=== PATIENT | female | born 1950 | race Caucasian/White ===

== ENCOUNTER → 2018-05-23 11:15 | Outpatient (CLI) | payer OTHER, SELFPAY ==
[2018-05-23 11:50] LABS: Add Manual Diff / Slide Review NO; Eosinophils Percent Auto 3.4 % (2-4); Hematocrit 41.8 % (36-46); Lymphocytes Percent Auto 46.1 % (25-40); Mean Corpuscular HGB Conc 33.4 % (30-36); Mean Corpuscular Hemoglobin 29.5 PG (26-34); Mean Corpuscular Volume 88.4 fL (80-100); Monocytes Percent Auto 9.7 % (3-14); Neutrophils Absolute Auto 3200 /uL (3000-5900); Neutrophils Percent Auto 39.8 % (50-75); Platelet Count 274 X10^3/uL (150-400); Red Blood Cell Count 4.73 X10^6/uL (4.0-5.2); White Blood Cell Count 8.1 X10^3/uL (4.5-11.0)
[2018-05-23 12:19] LABS: Alanine Aminotransferase 28 IU/L (9-52); Albumin 4.1 g/dL (3.5-5.0); Albumin Globulin Ratio 1.3 (1.0-2.8); Alkaline Phosphatase 71 U/L (38-126); Aspartate Aminotransferase 20 IU/L (14-36); BUN Creatinine Ratio 25.7 (6-22); Bilirubin Total 0.4 mg/dL (0.2-1.3); Blood Urea Nitrogen 18 mg/dL (7-17); Calcium 10.1 mg/dL (8.4-10.2); Carbon Dioxide 31 mmol/L (22-32); Chloride 101 mmol/L (98-107); Estimated Glomerular Filt Rate > 60.0 mL/min (>60); Globulin 3.1 g/dL (1.7-4.1); Glucose 155 mg/dL (80-110); HEMOLYSIS < 15 (0-50); Potassium 4.2 mmol/L (3.4-5.1); Sodium 143 mmol/L (137-145); Total Protein 7.2 g/dL (6.3-8.2)
[2018-05-26 10:41] LABS: QuantiFERON TB NEGATIVE (Negative)
== END ==
PROVIDERS: PCP Family Medicine; Visit Provider Physician Assistant
DX: L40.0 Psoriasis vulgaris (principal); L29.8 Other pruritus; Z71.89 Other specified counseling; Z79.899 Other long term (current) drug therapy
CPT/HCPCS: 36415; 80053; 85025; 86480

== ENCOUNTER → 2018-09-13 08:14 | Outpatient (CLI) | payer OTHER, SELFPAY ==
[2018-09-13 08:21] LABS: Bacteria Urine None Seen; RBC Urine None Seen (0-5/HPF)
[2018-09-13 08:48] LABS: Hematocrit 41.7 % (36-46); Hemoglobin 14.2 g/dL (12.0-16.0)
[2018-09-13 09:00] LABS: Appearance Urine UA CLEAR; Bilirubin Urine UA NEGATIVE (NEGATIVE); Color Urine UA YELLOW; Glucose Urine UA NEGATIVE (Normal); Ketones Urine UA NEGATIVE (NEGATIVE); Leukocyte Esterase Urine UA TRACE (NEGATIVE); Nitrite Urine UA NEGATIVE (Negative); Occult Blood Urine UA NEGATIVE (Negative); Protein Urine UA NEGATIVE (Negative); Specific Gravity Urine UA >=1.030 (1.000-1.035); Urobilinogen Urine UA 0.2 E.U./dL (0.2)
[2018-09-13 09:04] LABS: Culture Indicated Urine Cult Not Indicated; Squamous Epithelial Cell Urine 10-30 /HPF; WBC Urine 0-1/HPF (0-5/HPF)
[2018-09-13 09:27] LABS: Creatinine Urine Random 183.8 mg/dL; Protein (Total) Urine Random < 5 mg/dL (0-12); Protein Creatinine Ratio Urine 0.02 GRAM/24H
[2018-09-13 09:33] LABS: BUN Creatinine Ratio 28.6 (6-22); Blood Urea Nitrogen 20 mg/dL (7-17); Calcium 9.7 mg/dL (8.4-10.2); Carbon Dioxide 29 mmol/L (22-32); Chloride 101 mmol/L (98-107); Estimated Glomerular Filt Rate > 60.0 mL/min (>60); Glucose 135 mg/dL (80-110); HEMOLYSIS 20 (0-50); Potassium 4.5 mmol/L (3.4-5.1); Sodium 142 mmol/L (137-145)
== END ==
PROVIDERS: Family Provider Family Medicine; PCP Family Medicine; Visit Provider Student in an Organized Health Care Education/Training Program
DX: N05.9 Unspecified nephritic syndrome with unspecified morphologic changes (principal); D64.9 Anemia, unspecified; N30.00 Acute cystitis without hematuria; R80.9 Proteinuria, unspecified
CPT/HCPCS: 80048; 81001; 82570; 84156; 85014; 85018

== ENCOUNTER → 2018-11-09 08:49 | Outpatient (CLI) | payer OTHER, SELFPAY ==
--- NOTE | 2018-11-09 | DI.MG.S_ITS ---
BILATERAL DIGITAL SCREENING MAMMOGRAM 3D/2D WITH CAD: 11/09/2018 CLINICAL: Routine screening. Comparison is made to exams dated: 10/26/2017 mammogram, 10/01/2016 mammogram, and 09/30/2015 mammogram - [facility]. There are scattered fibroglandular elements in both breasts. Current study was also evaluated with a Computer Aided Detection (CAD) system. No significant masses, calcifications, or other findings are seen in either breast. There has been no significant interval change. IMPRESSION: NEGATIVE There is no mammographic evidence of malignancy. A 1 year screening mammogram is recommended. This exam was interpreted at Station ID: [id number]. NOTE: For mammograms, a report in lay terms will be sent to the patient. Approximately 15% of breast malignancies will not be visualized mammographically. In the management of a palpable breast mass, a negative mammogram must not discourage biopsy of a clinically suspicious lesion. Electronically Signed By: Jimi merlos/fredrick:11/09/2018 10:59:49 letter sent: Normal Exam ACR BI-RADS Category 1: Negative 3341F
== END ==
PROVIDERS: Family Provider Family Medicine; PCP Family Medicine; Visit Provider Family Medicine
DX: Z12.31 Encounter for screening mammogram for malignant neoplasm of breast (principal)
CPT/HCPCS: 77063; 77067

== ENCOUNTER → 2019-03-08 11:42 | Outpatient (CLI) | payer OTHER, SELFPAY ==
[2019-03-08 12:17] LABS: Add Manual Diff / Slide Review NO; Basophils Absolute Auto 100 /uL (0-100); Basophils Percent Auto 0.8 % (0-2); Eosinophils Absolute Auto 400 /uL (0-450); Eosinophils Percent Auto 3.1 % (2-4); Hematocrit 42.9 % (36-46); Hemoglobin 14.2 g/dL (12.0-16.0); Lymphocytes Absolute Auto 2800 /uL (1100-4500); Lymphocytes Percent Auto 22.7 % (25-40); Mean Corpuscular HGB Conc 33.1 % (30-36); Mean Corpuscular Volume 90.6 fL (80-100); Monocytes Absolute Auto 1300 /uL (0-900); Neutrophils Absolute Auto 7600 /uL (1500-7000); Neutrophils Percent Auto 62.4 % (50-75); Platelet Count 299 X10^3/uL (150-400); Red Blood Cell Count 4.74 X10^6/uL (4.0-5.2); White Blood Cell Count 12.2 X10^3/uL (4.5-11.0)
[2019-03-08 12:57] LABS: Alanine Aminotransferase 28 IU/L (9-52); Albumin 4.5 g/dL (3.5-5.0); Albumin Globulin Ratio 1.3 (1.0-2.8); Alkaline Phosphatase 76 U/L (38-126); Aspartate Aminotransferase 17 IU/L (14-36); BUN Creatinine Ratio 37.1 (6-22); Bilirubin Total 0.4 mg/dL (0.2-1.3); Blood Urea Nitrogen 26 mg/dL (7-17); Calcium 10.6 mg/dL (8.4-10.2); Carbon Dioxide 28 mmol/L (22-32); Chloride 101 mmol/L (98-107); Estimated Glomerular Filt Rate > 60.0 mL/min (>60); Globulin 3.4 g/dL (1.7-4.1); Glucose 88 mg/dL (80-110); HEMOLYSIS < 15 (0-50); Potassium 4.4 mmol/L (3.4-5.1); Sodium 139 mmol/L (137-145); Total Protein 7.9 g/dL (6.3-8.2)
[2019-03-08 15:26] LABS: Hepatitis B Surface Antigen NEGATIVE s/c (NEGATIVE)
[2019-03-08 15:37] LABS: HIV 1 and 2 Antibody NEGATIVE (NEGATIVE)
[2019-03-08 16:31] LABS: Hep C Virus Ab w/Reflex Quant NEGATIVE s/c (NEGATIVE)
[2019-03-11 10:18] LABS: Mitogen-NIL 7.77 IU/mL; NIL 0.01 IU/mL; QuantiFERON TB NEGATIVE (Negative); TB1-NIL < 0.01 IU/mL; TB2-NIL < 0.01 IU/mL
== END ==
PROVIDERS: PCP Family Medicine; Visit Provider Physician Assistant
DX: L40.0 Psoriasis vulgaris (principal)
CPT/HCPCS: 36415; 80053; 85025; 86480; 86703; 86803; 87340

== ENCOUNTER → 2019-05-29 10:05 | Outpatient (CLI) | payer OTHER, SELFPAY ==
[2019-05-29 10:54] LABS: Add Manual Diff / Slide Review NO; Basophils Absolute Auto 100 /uL (0-100); Basophils Percent Auto 1.1 % (0-2); Eosinophils Absolute Auto 300 /uL (0-450); Eosinophils Percent Auto 3.7 % (2-4); Hematocrit 41.6 % (36-46); Lymphocytes Absolute Auto 3000 /uL (1100-4500); Lymphocytes Percent Auto 42.7 % (25-40); Mean Corpuscular HGB Conc 33.6 % (30-36); Mean Corpuscular Hemoglobin 30.7 PG (26-34); Mean Corpuscular Volume 91.6 fL (80-100); Monocytes Absolute Auto 800 /uL (0-900); Monocytes Percent Auto 10.9 % (3-14); Neutrophils Absolute Auto 2900 /uL (1500-7000); Neutrophils Percent Auto 41.6 % (50-75); Platelet Count 279 X10^3/uL (150-400); Red Blood Cell Count 4.54 X10^6/uL (4.0-5.2); Red Cell Distribution Width 12.9 % (11.6-14.8)
[2019-05-29 11:01] LABS: Alanine Aminotransferase 22 IU/L (9-52); Albumin 4.3 g/dL (3.5-5.0); Albumin Globulin Ratio 1.4 (1.0-2.8); Alkaline Phosphatase 73 U/L (38-126); Aspartate Aminotransferase 19 IU/L (14-36); BUN Creatinine Ratio 25.7 (6-22); Bilirubin Total 0.7 mg/dL (0.2-1.3); Blood Urea Nitrogen 18 mg/dL (7-17); Calcium 10.1 mg/dL (8.4-10.2); Carbon Dioxide 28 mmol/L (22-32); Chloride 102 mmol/L (98-107); Estimated Glomerular Filt Rate > 60.0 mL/min (>60); Globulin 3.1 g/dL (1.7-4.1); Glucose 114 mg/dL (80-110); HEMOLYSIS < 15 (0-50); Potassium 4.4 mmol/L (3.4-5.1); Sodium 140 mmol/L (137-145); Total Protein 7.4 g/dL (6.3-8.2)
[2019-05-29 12:17] LABS: HIV 1 and 2 Antibody NEGATIVE (NEGATIVE); Hep C Virus Ab w/Reflex Quant NEGATIVE s/c (NEGATIVE)
[2019-06-01 13:47] LABS: Mitogen-NIL > 10.00 IU/mL; NIL 0.02 IU/mL; QuantiFERON TB NEGATIVE (Negative); TB1-NIL < 0.01 IU/mL; TB2-NIL < 0.01 IU/mL
[2019-06-05 07:55] LABS: Hepatitis B Surf Ab Qualitativ Nonreactive (Nonreactive)
== END ==
PROVIDERS: PCP Family Medicine; Visit Provider Physician Assistant
DX: L40.0 Psoriasis vulgaris (principal)
CPT/HCPCS: 36415; 80053; 85025; 86480; 86703; 86706; 86803

== ENCOUNTER → 2019-06-19 12:37 | Outpatient (CLI) | payer OTHER, SELFPAY ==
--- NOTE | 2019-06-19 | DI.RAD.S_ITS ---
PROCEDURE: XR HIP W PEL IF DONE LT 2V INDICATIONS: LEFT HIP PAIN TECHNIQUE: AP pelvis with lateral view(s) of the left hip(s). COMPARISON: None. FINDINGS: Bones: No fractures or dislocations. Pelvic ring appears intact. No suspicious bony lesions. Soft tissues: The visualized bowel gas pattern is normal. No suspicious soft tissue calcifications. IMPRESSION: Only a slight degree of hip joint osteoarthritis is present, symmetric. Surgical clips at the right lower quadrant suggest prior appendectomy. Dictated by: Geovanni Medley M.D. on 06/19/2019 at 15:17 Approved by: Geovanni Medley M.D. on 06/19/2019 at 15:17
== END ==
PROVIDERS: PCP Family Medicine; Visit Provider Family Medicine
DX: M25.552 Pain in left hip (principal); Z78.0 Asymptomatic menopausal state
CPT/HCPCS: 73502; 77080

== ENCOUNTER → 2020-03-03 09:24 | Outpatient (CLI) | payer OTHER, SELFPAY ==
--- NOTE | 2020-03-03 | DI.RAD.S_ITS ---
PROCEDURE: XR SHOULDER RT MIN 2V INDICATIONS: RIGHT SHOULDER PAIN TECHNIQUE: 3 views of the shoulder were acquired. COMPARISON: None. FINDINGS: Bones: No fractures or dislocations. There is widening of the acromioclavicular joint without distal clavicle elevation. No suspicious bony lesions. Visualized ribs appear intact. Soft tissues: Small wispy calcifications are seen at the rotator cuff insertion sites adjacent to the lateral humeral head.. IMPRESSION: 1. Findings of probable calcific tendinitis or enthesopathy at the rotator cuff insertion. 2. There is a.c. joint separation, chronicity is uncertain. Correlate with point tenderness. Dictated by: Daya Pagan M.D. on 03/03/2020 at 10:43 Approved by: Daya Pagan M.D. on 03/03/2020 at 10:49
== END ==
PROVIDERS: PCP Family Medicine; Referring Provider Family Medicine; Visit Provider Family Medicine
DX: M25.511 Pain in right shoulder (principal); S43.101A Unspecified dislocation of right acromioclavicular joint, initial encounter
CPT/HCPCS: 73030

== ENCOUNTER → 2020-03-14 10:04 | Outpatient (CLI) | payer OTHER, SELFPAY ==
--- NOTE | 2020-03-14 | DI.MG.S_ITS ---
BILATERAL DIGITAL SCREENING MAMMOGRAM 3D/2D WITH CAD: 03/14/2020 CLINICAL: Routine screening. Comparison is made to exams dated: 11/09/2018 mammogram - [facility], 10/26/2017 mammogram, 10/01/2016 mammogram, 09/30/2015 mammogram, and 09/18/2014 mammogram - [facility]. There are scattered fibroglandular elements in both breasts. Current study was also evaluated with a Computer Aided Detection (CAD) system. No significant masses, calcifications, or other findings are seen in either breast. There has been no significant interval change. IMPRESSION: NEGATIVE There is no mammographic evidence of malignancy. A 1 year screening mammogram is recommended. This exam was interpreted at Station ID: [id number]. NOTE: For mammograms, a report in lay terms will be sent to the patient. Approximately 15% of breast malignancies will not be visualized mammographically. In the management of a palpable breast mass, a negative mammogram must not discourage biopsy of a clinically suspicious lesion. Electronically Signed By: Sree joaquin/fredrick:03/14/2020 12:08:53 letter sent: Normal Exam ACR BI-RADS Category 1: Negative 3341F
== END ==
PROVIDERS: PCP Family Medicine; Referring Provider Family Medicine; Visit Provider Family Medicine
DX: Z12.31 Encounter for screening mammogram for malignant neoplasm of breast (principal)
CPT/HCPCS: 77063; 77067

== ENCOUNTER → 2020-05-20 11:47 | Outpatient (CLI) | payer OTHER, SELFPAY ==
[2020-05-21 09:37] LABS: COVID19 Sendout Not Detected (Not Detect)
== END ==
PROVIDERS: PCP Family Medicine; Visit Provider Physician Assistant
DX: Z11.59 Encounter for screening for other viral diseases (principal)
CPT/HCPCS: 87635

== ENCOUNTER 2020-05-23 14:12 | Day surgery (SDC) | payer OTHER, SELFPAY ==
--- NOTE | 2020-05-23 | PATH_ITS ---
[facility] Accession Number: [id number] . 01 Material submitted: . colon - POLYP TRANSVERSE 2 MM . 01 Clinical history: . SDC . 02 Diagnosis: Transverse Colon, Polyp 2 mm, Biopsy: Tubular adenoma. MRV 05/26/2020 0928 Local . 02 Electronically signed: . Jamia Woodall MD, Pathologist NPI- [id number] . 01 Gross description: . POLYP TRANSVERSE 2 MM: Received in formalin is 1 fragment(s) of levy, soft tissue measuring 0.4 x 0.3 x 0.1 cm submitted entirely in 1 cassette(s) /QBJ 05/24/2020 0752 Local . 02 Pathologist provided ICD-10: D12.3 . 02 CPT . 135767 Performed at: 01 [facility] [address] [id number] MD Jimi Sierra MD Phone: [phone] Performed at: 02 [facility] [address] [address] [place], [place] [id number] MD Jamia Woodall MD Phone: [phone]
--- NOTE | 2020-05-23 11:58 | P.OP.ENDO_ITS ---
Operative Date/Time/Diagnoses Date of procedure: 05/23/20 Procedure & Clinicians Study performed: Colonoscopy Surgeon: Sherrell Frances Procedure Notes SCOAP/Timeout: 15:34 Procedure in detail: ENDOSCOPIST: Sherrell Frances MD Sedation RN: Louise Win RN Sedation start time: 15:35 Sedation end time: 15:52 PROCEDURE: Colonoscopy with cold biopsy INDICATIONS: 1. Screening for cancer MEDICATION: Levsin 0.125 mg sublingual, incremental doses of Versed and fentanyl until appropriate level sedation achieved. ASA CLASS: 2 CECAL WITHDRAWAL TIME: 11 minutes COMPLICATIONS: None. EXTENT OF PROCEDURE: Cecum. QUALITY OF PREP: Good with portions of liquid stool. PROCEDURE: Prior to insertion of the colonoscope, a digital rectal examination was ac complished with circumferential palpation of the distal rectal mucosa without significant findings being noted. The high-definition colonoscope was passed into the rectum in the usual fashion and advanced over to the cecum without difficulty. The ileocecal valve, appendiceal stoma, and medial wall all could be inspected and no abnormalities were seen. ASCENDING COLON: As the colonoscope was withdrawn, care was taken to expose and inspect the haustral folds and no abnormalities were seen. HEPATIC FLEXURE: Normal, no polyps, diverticula or other abnormalities. TRANSVERSE COLON: A 2 mm polyp seen and removed with cold biopsy forceps, otherwise, normal, no diverticula or other abnormalities. DESCENDING COLON: Minor diverticulosis, otherwise, normal, no polyps, diverticula or other abnormalities. SIGMOID COLON: Minor diverticulosis, otherwise, normal, no polyps, diverticula or other abnormalities. RECTUM: Normal. J maneuver was produced. There was no significant perianal disease. The J maneuver was broken. The remainder of the rectum was inspected and there was no external hemorrhoid disease. The scope was withdrawn. IMPRESSION: 1. Transverse colon polyp x1, 2 mm, removed with cold biopsy forceps 2. Minor diverticulosis, left-sided PLAN: 1. Follow-up in clinic status post pathology results. The possibility of a missed lesion including a malignancy has been discussed with the patient previously. Potential alarm symptoms have been discussed and should be reported immediately. Complications: none Post-procedure Recommendations: Will call with biopsy results Follow up: weeks (2) Disposition: PACU
[2020-05-23] MEDS: LACTATED RINGERS 1,000 ML 200 ML IV (14:39)
[2020-05-23] MEDS: HYOSCYAMINE 0.125 MG TABLET PO (14:39)
[2020-05-23 14:41] VITALS: BP 154/77; PULSE 65; RESP 16; TEMP 36.2; O2SAT 98; BMI 30.3
[2020-05-23] MEDS: fentaNYL 250 MCG/5 ML INJ IV (15:34)
[2020-05-23] MEDS: MIDAZOLAM 5 MG/5 ML VIAL IV (15:34)
[2020-05-23 15:57] VITALS: BP 142/70; PULSE 59; RESP 20; O2SAT 96
[2020-05-23 16:01] VITALS: BP 136/68; PULSE 61; RESP 17; TEMP 36.6; O2SAT 96
[2020-05-23 16:07] VITALS: BP 130/75; PULSE 60; RESP 13; O2SAT 97
[2020-05-23 16:13] VITALS: BP 145/70; PULSE 62; RESP 13; TEMP 36.4; O2SAT 96
--- NOTE | 2020-05-23 17:46 | PM.PREOP ---
Pre-operative Note COVID-19 COVID-19 status: Negative Result date/Date tested (Pos, Neg/Pending): 05/20/20 Interval Note History & Physical reviewed/Exam performed by Physician: No Changes to H&P: No ASA Class (for procedural sedation): II
== END 2020-05-23 16:27 | disposition home or self-care (01) ==
PROVIDERS: PCP Family Medicine; Referring Provider Student in an Organized Health Care Education/Training Program; Visit Provider Student in an Organized Health Care Education/Training Program
PROC: 0DJD8ZZ Inspection of Lower Intestinal Tract, Via Natural or Artificial Opening Endoscopic (ICD-10-PCS; CPT 45378; principal; 2020-05-23 15:15)
DX: Z12.11 Encounter for screening for malignant neoplasm of colon (principal); I10 Essential (primary) hypertension; E11.9 Type 2 diabetes mellitus without complications; E78.5 Hyperlipidemia, unspecified; Z79.4 Long term (current) use of insulin; K57.30 Diverticulosis of large intestine without perforation or abscess without bleeding; D12.3 Benign neoplasm of transverse colon
CPT/HCPCS: 45380; J2250; J3010

== ENCOUNTER → 2021-03-16 15:44 | Outpatient (CLI) | payer OTHER, SELFPAY ==
--- NOTE | 2021-03-16 | DI.MG.S_ITS ---
BILATERAL DIGITAL SCREENING MAMMOGRAM 3D/2D WITH CAD: 03/16/2021 CLINICAL: Routine screening. Comparison is made to exams dated: 03/14/2020 mammogram, 11/09/2018 mammogram - [facility], 10/26/2017 mammogram, and 09/30/2015 mammogram - [facility]. There are scattered fibroglandular elements in both breasts. Current study was also evaluated with a Computer Aided Detection (CAD) system. No significant masses, calcifications, or other findings are seen in either breast. There has been no significant interval change. IMPRESSION: NEGATIVE There is no mammographic evidence of malignancy. A 1 year screening mammogram is recommended. This exam was interpreted at Station ID: [id number]. NOTE: For mammograms, a report in lay terms will be sent to the patient. Approximately 15% of breast malignancies will not be visualized mammographically. In the management of a palpable breast mass, a negative mammogram must not discourage biopsy of a clinically suspicious lesion. Electronically Signed By: Toi corral/fredrick:03/16/2021 18:58:05 letter sent: Normal Exam ACR BI-RADS Category 1: Negative 3341F
== END ==
PROVIDERS: PCP Family Medicine; Referring Provider Family Medicine; Visit Provider Family Medicine
DX: Z12.31 Encounter for screening mammogram for malignant neoplasm of breast (principal)
CPT/HCPCS: 77063; 77067

== ENCOUNTER → 2022-03-24 07:11 | Outpatient (CLI) | payer OTHER, SELFPAY ==
--- NOTE | 2022-03-24 | DI.US.S_ITS ---
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 COMPARISON: None. FINDINGS: Right: Thyroid lobe measures 5.8 x 2.6 x 2.5 cm, and is heterogeneous in echotexture. Left: Thyroid lobe measures 6.3 x 2.6 x 2.5 cm, and is heterogeneous in echotexture. Isthmus: 10 mm thick. Nodule number: 1 Location: Right upper lobe Size: 1.3 x 1.1 x 1.5 cm. Composition: Solid Echogenicity: Isoechoic Shape: wider than tall. Margins: Ill-defined Echogenic foci: None Total points: 3 ACR TI-RADS category: 3, mildly suspicious. Does not meet criteria for FNA recommendation. Nodule number: 2, annotated as #3 on images Location: Right inferior medial lobe Size: 1.1 x 0.6 x 0.8 cm. Composition: Solid Echogenicity: Isoechoic Shape: wider than tall. Margins: Ill-defined Echogenic foci: None Total points: 3 ACR TI-RADS category: 3, mildly suspicious. Does not meet criteria for FNA recommendation. Nodule number: 3, annotated as #4 on images Location: Isthmus Size: 1.7 x 1.1 x 1.2 cm. Composition: Solid Echogenicity: Hypoechoic Shape: wider than tall. Margins: Ill-defined Echogenic foci: None Total points: 4 ACR TI-RADS category: 4, moderately suspicious. Meets criteria for FNA recommendation. Nodule number: 4, annotated as #6 on images Location: Left lobe inferior Size: 2.1 x 0.9 x 1.8 cm. Composition: Solid Echogenicity: Hypoechoic Shape: wider than tall. Margins: Smooth Echogenic foci: None Total points: 4 ACR TI-RADS category: 4, moderately suspicious. Meets criteria for FNA recommendation. IMPRESSION: 1. Multinodular thyroid gland. 2. A nodule at the thyroid isthmus and a nodule at the inferior left lobe of the thyroid gland meet TI-RADS criteria for FNA recommendation. 3. Other nodules can be followed on follow-up exams, follow-up in 1 year recommended. ACR TI-RADS definitions and recommendations: TI-RADS 1 (benign): 0 points. FNA not needed. TI-RADS 2 (not suspicious): 2 points. FNA not needed. TI-RADS 3 (mildly suspicious): 3 points. * FNA if 2.5 cm or larger, follow up if 1.5 cm or larger (at 1, 3, and 5 years). TI-RADS 4 (moderately suspicious): 4-6 points. * FNA if 1.5 cm or larger, follow up if 1 cm or larger (at 1, 2, 3, and 5 years). TI-RADS 5 (highly suspicious): 7 points or more. * FNA if 1 cm or larger, follow up if 0.5 cm or larger (every year for 5 years). Dictated by: Poli Grove M.D. on 03/24/2022 at 11:24 Approved by: Poli Grove M.D. on 03/24/2022 at 11:47
--- NOTE | 2022-03-24 | DI.MG.S_ITS ---
BILATERAL DIGITAL SCREENING MAMMOGRAM 3D/2D WITH CAD: 03/24/2022 CLINICAL: Routine screening. Comparison is made to exams dated: 03/16/2021 mammogram, 03/14/2020 mammogram, and 11/09/2018 mammogram - [facility]. There are scattered fibroglandular elements in both breasts. Current study was also evaluated with a Computer Aided Detection (CAD) system. No significant masses, calcifications, or other findings are seen in either breast. There has been no significant interval change. IMPRESSION: NEGATIVE There is no mammographic evidence of malignancy. A 1 year screening mammogram is recommended. This exam was interpreted at Station ID: [id number]. NOTE: For mammograms, a report in lay terms will be sent to the patient. Approximately 15% of breast malignancies will not be visualized mammographically. In the management of a palpable breast mass, a negative mammogram must not discourage biopsy of a clinically suspicious lesion. Electronically Signed By: Poli penaloza/fredrick:03/24/2022 08:31:25 letter sent: Normal Exam ACR BI-RADS Category 1: Negative 3341F
== END ==
PROVIDERS: PCP Family Medicine; Referring Provider Family Medicine; Visit Provider Family Medicine
DX: Z12.31 Encounter for screening mammogram for malignant neoplasm of breast (principal); E01.0 Iodine-deficiency related diffuse (endemic) goiter
CPT/HCPCS: 76536; 77063; 77067

== ENCOUNTER → 2022-04-21 10:01 | Outpatient (CLI) | payer OTHER, SELFPAY ==
--- NOTE | 2022-04-21 | PATH_ITS ---
Note [facility] Accession Number: [id number] TESTS RESULT FLAG UNITS REF RANGE LAB Clinician Provided Cytology Information No. of containers..01 Other (Miscellaneous) No. of containers..00 Previously Prepared Cytology Slide Source: LEFT THYROID NODULE DIAGNOSIS: LEFT THYROID NODULE NEGATIVE FOR MALIGNANT CELLS. BETHESDA CATEGORY II. SPECIMEN CONSISTS OF BENIGN FOLLICULAR CELLS, HEMOSIDERIN-LADEN MACROPHAGES, AND COLLOID. THIS PATTERN IS CONSISTENT WITH A BENIGN FOLLICULAR NODULE. Pathologist ICD10: E04.1 Signed out by: Hyacinth Martínez MD, Pathologist NPI- [id number] Performed by: Jaguar Pérez, Die Setter ([facility]) Gross description: 30 CC, PINK, CLEAR RECIEVED: IN CYTOLYT WITH 5 ALCOHOL FIXED AND 5 QUICK STAINED SLIDES ALSO 1 RNA VIAL WAS RECEIVED. /VDU 04/22/[address] [place] [address] FLAG LEGEND: L-Low Normal,H-High Normal,LL-Alert Low,HH-Alert High <-Panic Low,>-Panic High,A-Abnormal,AA-Critical Abnormal Performed at: 01 =Z [facility] [address], [place] [address] Jimi Sierra MD, Performed at: 01 [facility] [address], [place], [place] [id number] MD Jimi Sierra MD Phone: [phone]
--- NOTE | 2022-04-21 | DI.US.S_ITS ---
PROCEDURE: US FINE NEEDLE ASPIRATION INDICATIONS: Thyroid nodules TECHNIQUE: The indications, alternatives, benefits, risks, and complications of the procedure were explained to the patient. Written informed consent was obtained and placed in the chart. The thyroid region was examined sonographically and a site was chosen for ultrasound guided percutaneous sampling. The skin was prepared and draped in the usual fashion, and anesthetized with 1% lidocaine infiltrated from the skin down to the thyroid gland. Multiple passes were then performed, with contents emptied into an appropriate pathology specimen container. A bandage was applied to the area of access at completion of the study. COMPARISON: [facility], US, US THYROID, 03/24/2022, 7:20. FINDINGS: Location(s) of lesion(s) sampled: Isthmus (nodule #3 on the prior report, labelled as #4 on the prior exam images) and left lobe inferior (nodule #4 on the prior report, labelled as #6 on the prior exam images) Hamer: 25 gauge hypodermic needles. Number of passes: 5 passes for each nodule Medications: 1% lidocaine for local anaesthesia. Complications: None. IMPRESSION: Successful ultrasound-guided thyroid nodules fine needle aspiration, with cytology results pending. Please see chart below for management recommendations based on cytology results. [facility] ReportingRecommendationsNon-diagnostic* Repeat US-guided FNA, with on-site cytology evaluation if possible. * Repeated non-diagnostic nodules without high suspicion US features: close observation vs surgical consult. * Consider surgery if nodule has high suspicion US features, grows >20% in 2 dimensions on followup, or patient has clinical risk factors for malignancy. Benign* If nodule has high suspicion US features: repeat US and FNA within 12 months. * If nodule has low to intermediate suspicion US features: repeat US at 12-24 months. If nodule grows (20% increase in at least 2 dimensions, with minimal increase of 2 mm or >50% change in volume), or development of new suspicious US features, then repeat FNA or continue followup. * If nodule has very low suspicion US features: followup US at >24 months. Atypia of undetermined significance, follicular lesion of undetermined significanceRepeat FNA, molecular testing, followup US, or surgical consult.Follicular neoplasm, suspicious for follicular neoplasmSurgical consult; also consider molecular testing. Suspicious for malignancySurgical consult.MalignantSurgical consult. Dictated by: Poli Grove M.D. on 04/21/2022 at 12:04 Approved by: Poli Grove M.D. on 04/21/2022 at 12:09
--- NOTE | 2022-04-21 | PATH_ITS ---
Note [facility] Accession Number: [id number] TESTS RESULT FLAG UNITS REF RANGE LAB Clinician Provided Cytology Information No. of containers..01 Other (Miscellaneous) No. of containers..00 Previously Prepared Cytology Slide Source: THYROID ISTHMUS NODU DIAGNOSIS: THYROID ISTHMUS NODU NEGATIVE FOR MALIGNANT CELLS. BETHESDA CATEGORY II. SPECIMEN CONSISTS OF BENIGN FOLLICULAR CELLS, HEMOSIDERIN-LADEN MACROPHAGES, COLLOID, AND BLOOD. THIS PATTERN IS CONSISTENT WITH A BENIGN FOLLICULAR NODULE. Pathologist ICD10: 01 E04.1 Signed out by: Cammy Siu MD, Pathologist NPI- [id number] Performed by: Jaguar Pérez, Application Operations Engineer ([facility]) Gross description: 30 CC, COLORLESS, CLEAR RECIEVED: IN CYTOLYT WITH 5 ALCOHOL FIXED AND 5 QUICK STAINED SLIDES ALSO 1 RNA VIAL WAS RECEIVED. /VDU 04/22/2022 [facility] Local FLAG LEGEND: L-Low Normal,H-High Normal,LL-Alert Low,HH-Alert High <-Panic Low,>-Panic High,A-Abnormal,AA-Critical Abnormal Performed at: 01 =[facility] [address], [place] [address] Jimi Sierra MD, Performed at: 01 [facility] [address], [place], [place] [id number] MD Jimi Sierra MD Phone: [phone]
== END ==
PROVIDERS: PCP Family Medicine; Referring Provider Family Medicine; Visit Provider Family Medicine
DX: E04.2 Nontoxic multinodular goiter (principal)
CPT/HCPCS: 10005; 10006

== ENCOUNTER → 2023-03-22 06:42 | Outpatient (CLI) | payer OTHER, SELFPAY ==
--- NOTE | 2023-03-22 | DI.US.S_ITS ---
PROCEDURE: US THYROID INDICATIONS: THYROID NODULE TECHNIQUE: Real-time scanning was performed of the thyroid gland, with image documentation. COMPARISON: [facility], US, US THYROID, 03/24/2022, 7:20. FINDINGS: Right: Thyroid lobe measures 6.6 x 2.6 x 2.6 cm, and is heterogeneous in echotexture. Left: Thyroid lobe measures 7.4 x 3.0 x 3.6 cm, and is heterogeneous in echotexture. Isthmus: 8 mm thick. Multiple (5) thyroid nodules visualized. Per TI-RADS guidance, 4 most suspicious nodules reported as below. Nodule #3 not reported, decreased in size since before, does not meet TI-RADS criteria for FNA recommendation. Nodule number: 1 Location: Right lobe superior Size: 1.1 x 1.6 x 0.9 cm. Previously 1.3 x 1.5 x 1.1 cm Composition: Predominantly solid Echogenicity: Hypoechoic Shape: wider than tall. Margins: Ill-defined Echogenic foci: None Total points: 4 ACR TI-RADS category: 4 Nodule number: 2 Location: Right lobe inferior medial Size: 0.9 x 1.0 x 0.6 cm. Previously 1.1 x 0.8 x 0.6 cm Composition: Solid Echogenicity: Isoechoic Shape: wider than tall. Margins: Smooth Echogenic foci: None Total points: 3 ACR TI-RADS category: 3 Nodule number: 4 Location: Left lobe inferior Size: 2.3 x 2.2 x 0.9 cm. Previously 2.1 x 1.8 x 0.9 cm Composition: Solid Echogenicity: Hypoechoic Shape: wider than tall. Margins: Smooth Echogenic foci: Macro calcification Total points: 5 ACR TI-RADS category: 4 Nodule number: 5 Location: Right lobe inferior Size: 1.5 x 1.5 x 1.3 cm. Newly apparent/documented Composition: Predominantly solid Echogenicity: Hypoechoic Shape: wider than tall. Margins: Smooth Echogenic foci: Macrocalcification Total points: 5 ACR TI-RADS category: 4 IMPRESSION: 1. Multinodular thyroid gland. 2. Previously demonstrated nodule at the right upper lobe of the thyroid gland, nodule #1, is similar to slightly decreased in size but now appears consistent with TI-RADS category 4, meeting criteria for FNA recommendation. 3. Newly apparent/documented nodule #5 meets TI-RADS criteria for FNA recommendation. 4. Nodule #4 meets TI-RADS criteria for FNA recommendation. 5. Correlation with any prior FNA results is recommended. ACR TI-RADS definitions and recommendations: TI-RADS 1 (benign): 0 points. FNA not needed. TI-RADS 2 (not suspicious): 2 points. FNA not needed. TI-RADS 3 (mildly suspicious): 3 points. * FNA if 2.5 cm or larger, follow up if 1.5 cm or larger (at 1, 3, and 5 years). TI-RADS 4 (moderately suspicious): 4-6 points. * FNA if 1.5 cm or larger, follow up if 1 cm or larger (at 1, 2, 3, and 5 years). TI-RADS 5 (highly suspicious): 7 points or more. * FNA if 1 cm or larger, follow up if 0.5 cm or larger (every year for 5 years). Dictated by: Poli Grove M.D. on 03/22/2023 at 15:05 Approved by: Poli Grove M.D. on 03/22/2023 at 15:18
== END ==
PROVIDERS: PCP Family Medicine; Referring Provider Family Medicine; Visit Provider Family Medicine
DX: E04.2 Nontoxic multinodular goiter (principal)
CPT/HCPCS: 76536

== ENCOUNTER → 2023-03-28 07:05 | Outpatient (CLI) | payer OTHER, SELFPAY ==
--- NOTE | 2023-03-28 | DI.MG.S_ITS ---
BILATERAL DIGITAL SCREENING MAMMOGRAM 3D/2D WITH CAD: 03/28/2023 CLINICAL: Routine screening. Comparison is made to exams dated: 03/24/2022 mammogram, 03/16/2021 mammogram, and 03/14/2020 mammogram - [facility]. There are scattered areas of fibroglandular density in both breasts (category b / 25%-50% glandular tissue). Current study was also evaluated with a Computer Aided Detection (CAD) system. No significant masses, calcifications, or other findings are seen in either breast. There has been no significant interval change. IMPRESSION: NEGATIVE There is no mammographic evidence of malignancy. A 1 year screening mammogram is recommended. Based on the Tyrer Cuzick model (a risk assessment model) the patient's lifetime risk is 1.9% and her 10 year risk is 1.4%. According to the ACR, ACS, and NCCN guidelines, an annual breast MRI exam along with mammogram is recommended if the patient's lifetime risk is 20% or greater. This exam was interpreted at Station ID: [id number]. NOTE: For mammograms, a report in lay terms will be sent to the patient. Approximately 15% of breast malignancies will not be visualized mammographically. In the management of a palpable breast mass, a negative mammogram must not discourage biopsy of a clinically suspicious lesion. Electronically Signed By: Laureano moore/fredrick:03/28/2023 10:11:32 letter sent: Normal Exam ACR BI-RADS Category 1: Negative 3341F
== END ==
PROVIDERS: PCP Family Medicine; Referring Provider Family Medicine; Visit Provider Family Medicine
DX: Z12.31 Encounter for screening mammogram for malignant neoplasm of breast (principal)
CPT/HCPCS: 77063; 77067

== ENCOUNTER → 2023-05-03 08:43 | Outpatient (CLI) | payer OTHER, SELFPAY ==
--- NOTE | 2023-05-03 | PATH_ITS ---
Note [facility] Accession Number: [id number] TESTS RESULT FLAG UNITS REF RANGE LAB Clinician Provided Cytology Information No. of containers..01 Other (Miscellaneous) No. of containers..05 Previously Prepared Cytology Slide Source: INFERIOR RIGHT THYROID NODULE #5 (B) DIAGNOSIS: 01 INFERIOR RIGHT THYROID NODULE #5 (B), FINE NEEDLE ASPIRATION. NEGATIVE FOR MALIGNANT CELLS. ADEQUATE FOR EVALUATION. FOLLICULAR GROUPS ARE PRESENT. BENIGN FOLLICULAR (GOITEROUS) NODULE (BETHESDA CATEGORY II), SEE COMMENT. COMMENT: MICROSCOPIC EXAMINATION REVEALS A MILDLY CELLULAR ASPIRATE, COMPOSED OF ABUNDANT COLLOID AND FOLLICULAR GROUPS WITHOUT SIGNIFICANT CYTOLOGIC OR ARCHITECTURAL ATYPIA. THESE FINDINGS SUPPORT A BENIGN FOLLICULAR (GOITEROUS) NODULE. CORRELATION WITH CLINICAL AND RADIOGRAPHIC FINDINGS IS RECOMMENDED. ACCORDING TO THE BETHESDA REPORTING SYSTEM FOR THYROID CYTOPATHOLOGY, THE RISK OF MALIGNANCY IN THE CATEGORY BENIGN-CATEGORY II IS 0-3%; THEREFORE RECOMMEND CONTINUED ULTRASOUND SURVEILLANCE WITH REPEAT FNA IF THE NODULE SIGNIFICANTLY INCREASES IN SIZE. Pathologist ICD10: 01 E04.2 Signed out by: Shirley Westfall MD, Pathologist NPI- [id number] Performed by: Kings Erwin, Load Test Mechanic ([facility]) Gross description: 01 30 CC, COLORLESS, CLEAR RECIEVED: IN CYTOLYT WITH 8 ALCOHOL FIXED AND 7 QUICK STAINED SLIDES ALSO 1 RNA VIAL WAS RECEIVED.VO /VDU 05/04/2023 [facility] FLAG LEGEND: L-Low Normal,H-High Normal,LL-Alert Low,HH-Alert High <-Panic Low,>-Panic High,A-Abnormal,AA-Critical Abnormal Performed at: 01 [facility] [address], [place] [address] Jimi Sierra MD, Specimen Comment: [id number] Performed at: 01 [facility] [address] [place] [address] [address], [place], [place] [id number] MD Jimi Sierra MD Phone: [phone]
--- NOTE | 2023-05-03 | PATH_ITS ---
Note [facility] Accession Number: [id number] TESTS RESULT FLAG UNITS REF RANGE LAB Clinician Provided Cytology Information No. of containers..01 Other (Miscellaneous) No. of containers..08 Previously Prepared Cytology Slide Source: INFERIOR LEFT THYROID NODULE #4 (A) DIAGNOSIS: INFERIOR LEFT THYROID NODULE #4 (A) NEGATIVE FOR MALIGNANT CELLS. B[place]ES[place] CATEGORY II. SPECIMEN IS VARIABLY CELLULAR AND CONSISTS OF BENIGN FOLLICULAR CELLS (MAINLY HURTHLE CELLS WITHOUT ATYPIA), MACROPHAGES, COLLOID, AND BLOOD. THIS PATTERN IS CONSISTENT WITH A BENIGN FOLLICULAR NODULE. Pathologist ICD10: 01 E04.1 Signed out by: Cammy Siu MD, Pathologist NPI- [id number] Performed by: Josue Peters, Incubator Operator ([facility]) Gross description: 30 CC, COLORLESS, CLEAR RECIEVED: IN CYTOLYT WITH 4 ALCOHOL FIXED AND 4 QUICK STAINED SLIDES ALSO 1 RNA VIAL WAS RECEIVED.VO /VDU 05/04/2023 1012 Local FLAG LEGEND: L-Low Normal,H-High Normal,LL-Alert Low,HH-Alert High <-Panic Low,>-Panic High,A-Abnormal,AA-Critical Abnormal Performed at: 01 =Z [facility] Cytology [address] [place] [address] [address], [place] [address] Jimi Sierra MD, Specimen Comment: [id number] Performed at: [address] [place] [address] Cyt[address] [place] [address] [address], [place], [place] [id number] MD Jimi Sierra MD Phone: [phone]
--- NOTE | 2023-05-03 | DI.US.S_ITS ---
PROCEDURE: US FINE NEEDLE ASPIRATION INDICATIONS: BILAT NODULES TECHNIQUE: The indications, alternatives, benefits, risks, and complications of the procedure were explained to the patient. Written informed consent was obtained and placed in the chart. The thyroid region was examined sonographically and a site was chosen for ultrasound guided percutaneous sampling. The skin was prepared and draped in the usual fashion, and anesthetized with 1% lidocaine infiltrated from the skin down to the thyroid gland. Multiple passes were then performed, with contents emptied into an appropriate pathology specimen container. A bandage was applied to the area of access at completion of the study. COMPARISON: [facility], US, US FINE NEEDLE ASPIRATION, 04/21/2022, 10:30. FINDINGS: Location(s) of lesion(s) sampled: Right and mild left lesions corresponding to previously documented lesions 5 L4 respectively. [place]: 25 gauge hypodermic needles. Number of passes: 6-8 per lesion Medications: 1% lidocaine for local anaesthesia. Complications: None. IMPRESSION: Successful ultrasound-guided thyroid nodule fine needle aspiration, with cytology results pending. Please see chart below for management recommendations based on cytology results. [place] [facility] ReportingRecommendationsNon-diagnostic* Repeat US-guided FNA, with on-site cytology evaluation if possible. * Repeated non-diagnostic nodules without high suspicion US features: close observation vs surgical consult. * Consider surgery if nodule has high suspicion US features, grows >20% in 2 dimensions on followup, or patient has clinical risk factors for malignancy. Benign* If nodule has high suspicion US features: repeat US and FNA within 12 months. * If nodule has low to intermediate suspicion US features: repeat US at 12-24 months. If nodule grows (20% increase in at least 2 dimensions, with minimal increase of 2 mm or >50% change in volume), or development of new suspicious US features, then repeat FNA or continue followup. * If nodule has very low suspicion US features: followup US at >24 months. Atypia of undetermined significance, follicular lesion of undetermined significanceRepeat FNA, molecular testing, followup US, or surgical consult.Follicular neoplasm, suspicious for follicular neoplasmSurgical consult; also consider molecular testing. Suspicious for malignancySurgical consult.MalignantSurgical consult. Dictated by: Jill Tsang M.D. on 05/03/2023 at 12:41 Approved by: Jill Tsang M.D. on 05/03/2023 at 12:42
== END ==
PROVIDERS: PCP Family Medicine; Referring Provider Family Medicine; Visit Provider Family Medicine
DX: E04.2 Nontoxic multinodular goiter (principal)
CPT/HCPCS: 10005; 10006

== ENCOUNTER → 2023-08-26 12:19 | Outpatient (CLI) | payer OTHER, SELFPAY ==
--- NOTE | 2023-08-26 | DI.CT.S_ITS ---
PROCEDURE: CT KIDNEY URETER BLADDER (KUB) INDICATIONS: Dysuria TECHNIQUE: Axial sections were acquired from the lung bases to the pubic symphysis. Coronal and sagittal reformats were performed. For radiation dose reduction, the following was used: automated exposure control, adjustment of mA and/or kV according to patient size. COMPARISON: [facility], CT, KIDNEY/ URETER/BLADDER, 06/10/2016, 16:28. FINDINGS: Image quality: Excellent. Lung bases: 1.1 x 0.9 cm nodule in the left lower lobe (series 3, image 3). Heart: Unremarkable. URINARY: Right Kidney: No stones or hydronephrosis. Right Ureter: No hydroureter. Left Kidney: No stones or hydronephrosis. Left Ureter: No hydroureter. Bladder: Normal wall thickness. No stones. ABDOMEN: Liver: No contour-deforming solid mass. Gallbladder: No radiopaque gallstones or wall thickening. Biliary ducts: No biliary dilation. Pancreas: No ductal dilation. Spleen: Size is within normal limits. Adrenal Glands: Stable 1 cm left adrenal nodule with benign features (-17 Hounsfield unit), most consistent with a benign adrenal adenoma. Stomach and Bowel: Normal colonic caliber, without significant wall thickening. Colonic diverticulosis without evidence of diverticulitis. Peritoneum: No abnormal intraperitoneal fluid. No free air. Ventral Wall: No hernia. Abdominal Nodes: No enlarged retroperitoneal or mesenteric lymph nodes. Vessels: Aorta and inferior vena cava are normal in size. PELVIS: Pelvic Organs: Unremarkable. Pelvic Nodes: Unremarkable. Miscellaneous: No inguinal hernias are seen. Bones: Unremarkable. IMPRESSION: 1.1 x 0.9 cm nodule in the left lower lobe. This is new since 2019. Consider PET-CT or biopsy given size, per Fleischner society guidelines. No obstructing stones or hydronephrosis. Dictated by: Kemar Burton M.D. on 08/26/2023 at 13:03 Approved by: Kemar Burton M.D. on 08/26/2023 at 13:18
== END ==
PROVIDERS: PCP Family Medicine; Referring Provider Registered Nurse; Visit Provider Registered Nurse
DX: R30.0 Dysuria (principal); R82.90 Unspecified abnormal findings in urine; R91.1 Solitary pulmonary nodule
CPT/HCPCS: 74176

== ENCOUNTER → 2023-09-27 13:42 | Outpatient (CLI) | payer OTHER, SELFPAY ==
--- NOTE | 2023-09-27 | DI.CT.S_ITS ---
PROCEDURE: CT CHEST WO CON INDICATIONS: MASS OF LOWER LOBE OF LEFT LUNG TECHNIQUE: Noncontrast 2.0-2.5 mm thick sections acquired from the pulmonary apices to the posterior costophrenic angles. 7 mm thick axial MIP and 5 mm coronal and sagittal reformats were then acquired. For radiation dose reduction, the following was used: automated exposure control, adjustment of mA and/or kV according to patient size. COMPARISON: CT, IVP (ABD & PEL WWO CONTRAST), 07/20/2016, 9:49. [facility], CT, CT KIDNEY URETER BLADDER (KUB), 08/26/2023, 12:24. FINDINGS: Image quality: Diagnostic. Lower Neck: No enlarged lymph nodes. Thyroid: Thyroid gland is enlarged and heterogeneous. Axillae: No enlarged lymph nodes. Chest Wall: Unremarkable. Bones: Unremarkable. Lungs and Pleura: There is a 1.3 cm nodule in the left lower lobe (series 3, image 157 close), which has increased in size (previously 0.8 cm on 08/26/2023). There are multiple tiny nodules in the same distribution with tree-in-bud configuration, suggesting an infectious process. No pneumothorax or pleural effusions. No consolidation. Heart: Heart size is normal. No pericardial effusion. There is mild coronary artery atherosclerosis. Thoracic Vessels: The aorta and pulmonary arteries demonstrate normal size. Mediastinum and [place]: No enlarged lymph nodes. Esophagus: No wall thickening. Tiny hiatal hernia. Upper Abdomen: Visualized upper abdomen solid organs and bowel loops appear normal. IMPRESSION: 1. The left lower lobe lung nodule has increased in size exam. Differential diagnoses are primary lung cancer versus inflammatory or infectious nodule. PET-CT is recommended for further evaluation. 2. There are multiple tiny nodules in the left lower lobe with tree-in-bud configuration, suggesting an infectious process. 3. Enlargement of thyroid gland with heterogeneous attenuation. Please correlate with thyroid function tests. 4. Mild coronary artery atherosclerosis. Fleischner Society criteria for SOLID lung nodule followup. Nodule size (mm)Low-risk patientHigh-risk patient<6 (single or multiple)No routine followup.Optional CT at 12 months. 6-8 (single or multiple)CT at 6-12 months, then optional CT at 18-24 mo.CT at 6-12 months, then CT at 18-24 months. >8 (single)CT at 3 months, PET-CT, or biopsy. Same as for low-risk pts. >8 (multiple)CT at 3-6 months, then optional CT at 18-24 mo.CT at 3-6 months, then CT at 18-24 months. Recommendations do not apply to lung cancer screening, patients with immunosuppression, or patients with known primary cancer. Dictated by: Odell Avina M.D. on 09/27/2023 at 15:22 Approved by: Odell Avina M.D. on 09/27/2023 at 15:35
== END ==
PROVIDERS: PCP Family Medicine; Referring Provider Family Medicine; Visit Provider Family Medicine
DX: R91.8 Other nonspecific abnormal finding of lung field; E04.9 Nontoxic goiter, unspecified; I25.10 Atherosclerotic heart disease of native coronary artery without angina pectoris
CPT/HCPCS: 71250

== ENCOUNTER → 2024-04-13 15:02 | Outpatient (CLI) | payer OTHER, SELFPAY ==
--- NOTE | 2024-04-13 15:03 | DI.MG.S_ITS ---
BILATERAL DIGITAL SCREENING MAMMOGRAM 3D/2D WITH CAD: 04/13/2024 CLINICAL: Routine screening. Comparison is made to exams dated: 03/28/2023 mammogram, 03/24/2022 mammogram, and 03/16/2021 mammogram - [facility]. There are scattered areas of fibroglandular density in both breasts (category b / 25%-50% glandular tissue). Current study was also evaluated with a Computer Aided Detection (CAD) system. No significant masses, calcifications, or other findings are seen in either breast. There has been no significant interval change. IMPRESSION: NEGATIVE There is no mammographic evidence of malignancy. A 1 year screening mammogram is recommended. Based on the Tyrer Cuzick model (a risk assessment model) the patient's lifetime risk is 1.8% and her 10 year risk is 1.5%. According to the ACR, ACS, and NCCN guidelines, an annual breast MRI exam along with mammogram is recommended if the patient's lifetime risk is 20% or greater. This exam was interpreted at Station ID: [id number]. NOTE: For mammograms, a report in lay terms will be sent to the patient. Approximately 15% of breast malignancies will not be visualized mammographically. In the management of a palpable breast mass, a negative mammogram must not discourage biopsy of a clinically suspicious lesion. Electronically Signed By: Toi corral/fredrick:04/16/2024 06:56:54 letter sent: Normal Exam ACR BI-RADS Category 1: Negative [id number]
== END ==
LOC: MAMMO 15:03
PROVIDERS: PCP Family Medicine; Referring Provider Family Medicine; Visit Provider Family Medicine
DX: Z12.31 Encounter for screening mammogram for malignant neoplasm of breast (principal); R92.323 Mammographic fibroglandular density, bilateral breasts
CPT/HCPCS: 77063; 77067

== ENCOUNTER 2024-05-13 18:59 | Emergency (ER) | payer OTHER, SELFPAY ==
[2024-05-13 19:09] VITALS: BP 176/69; PULSE 74; RESP 16; TEMP 36.4; O2SAT 98; BMI 29.8
[2024-05-13 19:20] LABS: Bilirubin Urine UA NEGATIVE (NEGATIVE); Color Urine UA RED; Glucose Urine UA NEGATIVE (Negative); Ketones Urine UA NEGATIVE (NEGATIVE); Leukocyte Esterase Urine UA NEGATIVE (NEGATIVE); Nitrite Urine UA NEGATIVE (Negative); Occult Blood Urine UA 3+ (Negative); Protein Urine UA 2+ (Negative); Specific Gravity Urine UA >=1.030 (1.000-1.035)
--- NOTE | 2024-05-13 19:35 | ED_ITS ---
HPI - General Adult General Chief complaint: Urogenital-Female Stated complaint: blood in urine Time Seen by Provider: 05/13/24 19:14 Source: patient Mode of arrival: Ambulatory History of Present Illness HPI narrative: 73-year-old female woke up at one o'clock this morning to go to the bathroom, noted blood red color in the toilet bowl, no stones or sediment, had just urinated, no vaginal bleeding, no rectal bleeding. She also had some left low back discomfort. Denies history of kidney stones. Has had prior urinary tract infections. Not particularly painful with urination, no urinary frequency. No fevers or chills. No nausea or vomiting. No trauma or injury. No new activities. She has not taken chronic blood thinner medications. Denies trouble breathing. Reports March 2024 had incidental imaging showing a lung nodule, that was removed surgically at [place], found to be benign. Related Data Home Medications Medication Instructions Recorded Confirmed adalimumab 40 mg/0.8 mL 40 mg SQ QWEEK ##0 09/28/16 05/23/20 subcutaneous syringe kit (Humira) multivitamin (Multiple Vitamins 1 tab PO QDAY ##0 09/28/16 05/23/20 tablet) ibuprofen 800 mg tablet 800 mg PO TID PRN Pain (Scale 05/23/20 05/23/20 Score 1-3) lisinopril 5 mg tablet 5 mg PO BEDTIME 05/23/20 05/23/20 metformin 500 mg tablet 500 mg PO BID 05/23/20 05/23/20 Previous Rx's Medication Instructions Recorded cefdinir 300 mg capsule 300 mg PO BID 10 days #20 caps 05/13/24 Allergies Allergy/AdvReac Type Severity Reaction Status Date / Time ERYTHROMYCIN AdvReac Intermediate other Uncoded 05/23/20 14:48 Review of Systems Review of Systems Narrative: see HPI Patient History Medical History (Updated 05/13/24 @ 20:49 by Gerson Mullen MD) Psoriasis Social History household members: spouse Smoking Status: Never smoker alcohol intake: never Smoking Status: Never smoker Substance Use Type: does not use Exam Narrative Exam Narrative: GENERAL: Well-developed patient, in mild distress. HEAD: Atraumatic. Normocephalic. EYES: Pupils equal round and reactive. Extraocular motions intact. No scleral icterus. No injection or drainage. ENT: Nose without bleeding, purulent drainage. Throat without erythema, tonsillar hypertrophy or exudate. Airway patent. NECK: Trachea midline. Non tender CARDIOVASCULAR: Regular rate and rhythm without murmurs, gallops, or rubs. RESPIRATORY: Clear to auscultation. Breath sounds equal bilaterally. No wheezes, rales, or rhonchi. GASTROINTESTINAL: Abdomen soft, non-tender, nondistended. EXTREMITIES: No edema or joint tenderness. BACK: Nontender without deformity or crepitance. No flank tenderness. NEURO: AOx3. SKIN: No rash or erythema of visible areas Initial Vital Signs Initial Vital Signs: Vital Signs Temperature 97.5 F L 05/13/24 19:09 Pulse Rate 74 05/13/24 19:09 Respiratory Rate 16 05/13/24 19:09 Blood Pressure 176/69 H 05/13/24 19:09 Pulse Oximetry 98 05/13/24 19:09 Oxygen Delivery Method Room Air 05/13/24 19:09 Course Orders Ordered: ED Orders 05/13/24 19:05 Urinalysis and Microscopic Stat 05/13/24 19:23 Complete Blood Count AUTO DIFF Stat Comprehensive Metabolic Panel Stat Lipase Stat 05/13/24 19:52 CT abdomen pelvis w con Stat Discontinued Medications Ceftriaxone Sodium 1,000 mg/ (Sodium Chloride) 100 mls @ 200 mls/hr IV NOW ONE Stop: 05/13/24 19:48 Last Infusion: 05/13/24 20:59 Dose: Infused Documented By: Admin: 05/13/24 20:15 Dose: 200 mls/hr Documented By: DUDLEY Ondansetron HCl (Ondansetron 4 Mg/2 Ml Inj) 4 mg IV NOW PRN PRN Reason: Nausea And Vomiting Ondansetron HCl (Ondansetron 4 Mg Odt) 4 mg PO NOW PRN PRN Reason: Nausea And Vomiting Vital Signs Vital signs: Vital Signs - 8 hr 05/13/24 19:09 05/13/24 21:05 Temperature 97.5 F L Pulse Rate 74 73 Respiratory Rate 16 16 Blood Pressure 176/69 H 173/81 H Pulse Oximetry 98 98 Oxygen Delivery Method Room Air Room Air Medical Decision Making Lab Data Lab results reviewed: Yes I reviewed the patient's lab results. 05/13/24 19:23 05/13/24 19:23 Labs: Lab Results 05/13/24 05/13/24 Range/Units 19:05 19:23 WBC 14.0 H (4.5-11.0) X10^3/uL RBC 4.49 (4.0-5.2) X10^6/uL Hgb 13.2 (12.0-16.0) g/dL Hct 39.9 (36-46) % MCV 88.9 (80-100) fL MCH 29.3 (26-34) PG MCHC 33.0 (30-36) % RDW 13.3 (11.6-14.8) % Plt Count 307 (150-400) X10^3/uL Neut % (Auto) 62.2 (50-75) % Lymph % (Auto) 24.7 L (25-40) % [place] % (Auto) 11.1 (3-14) % Eos % (Auto) 1.6 L (2-4) % Baso % (Auto) 0.4 (0-2) % Neut # (Auto) 8700 H (1910-7540) /uL Lymph # (Auto) 3400 (4920-4934) /uL [place] # (Auto) 1600 H (0-900) /uL Eos # (Auto) 200 (0-450) /uL Baso # (Auto) 100 (0-100) /uL Sodium 137 (137-145) mmol/L Potassium 4.0 (3.4-5.1) mmol/L Chloride 104 (98-107) mmol/L Carbon Dioxide 25 (22-32) mmol/L BUN 20 H (7-17) mg/dL Creatinine 0.91 (0.52-1.04) mg/dL Estimated GFR > 60 (>60) mL/min BUN/Creatinine Ratio 22.0 (6-22) Glucose 117 H (80-110) mg/dL Calcium 9.5 (8.4-10.2) mg/dL Total Bilirubin 0.6 (0.2-1.3) mg/dL AST 24 (14-36) IU/L ALT 26 (<35) IU/L Alkaline Phosphatase 92 (38-126) U/L Total Protein 7.7 (6.3-8.2) g/dL Albumin 4.4 (3.5-5.0) g/dL Globulin 3.3 (1.7-4.1) g/dL Albumin/Globulin Ratio 1.3 (1.0-2.8) Lipase 177 (23-300) U/L Urine Color Red Urine Appearance Turbid Urine pH 6.0 (4.5-8.0) Ur Specific [place] >=1.030 H (1.000-1.035) Urine Protein 2+ H (Negative) Urine Glucose (UA) Negative (Negative) g/dL Urine Ketones Negative (NEGATIVE) Urine Occult Blood 3+ H (Negative) Urine Nitrate Negative (Negative) Urine Bilirubin Negative (NEGATIVE) Urine Urobilinogen 1.0 (0.2) E.U./dL Ur Leukocyte Esterase Negative (NEGATIVE) Urine RBC >100/hpf H (0-5/HPF) Urine WBC 0-1/hpf (0-5/HPF) Ur Squamous Epith Cells 0-1 /hpf D (0-5/HPF) Urine Bacteria Few (2-10) H (None) Ur Culture Indicated? Cult not indicated Vol Urine Centrifuged 5 MDM Narrative Medical decision making narrative: 73-year-old female with gross hematuria symptoms, along with left low back pain, no history of kidney stones, prior cystitis infections. No CVA tenderness. Anterior abdomen benign. Afebrile, sirs screen negative. DDx consider ureteral stone, UTI/pyelonephritis, bladder mass, renal mass, cystitis with some other concomitant infection such as colitis or diverticulitis, aortic dissection, aortic aneurysm, renovascular thrombosis, other. Labs and urinalysis pending. Anticipate CT abdomen and pelvis imaging, with IV contrast if renal function favorable, otherwise noncontrast. Patient agreeable, we would like pain medications, IV Toradol. Keep NPO. Urinalysis shows presence of red cells, some bacteria, urine culture requested, IV ceftriaxone. CT abdomen and pelvis imaging results pending CT abdomen shows 2 mm distal left ureteral stone, no other acute changes noted, see radiology report Urine strainer for discharge. Trial of antibiotics in case of urine infection, a few bacteria were present on urinalysis showing predominance of hematuria, uine culture pending, IV ceftriaxone given, will prescribe cefdinir antibiotic, follow up with local urologist advised, none locally on-call, no indications or emergent referral now, call Urology offices in the morning to arrange follow up appointment in the next couple of days. Take [id number] Tylenol and or Motrin as needed for pain control. Return precautions discussed. Critical Care Time Critical Care Time Critical Care Time: Yes Total Critical Care Time: 31 Attestation: The high probability of a clinically significant, sudden or life threatening deterioration of the [abdominopelvic, genitourinary, renal] systems required my full and direct attention, intervention and personal management. The aggregate critical care time was [31] minutes. This time is in addition to time spent performing reported procedures but includes the following: [x] Data Review and interpretation [x] Patient assessment and monitoring of vital signs [x] Documentation [x] Medication orders and management Discharge Plan Departure Patient Disposition: Home Clinical Impression: Gross hematuria, Urinary tract infection, Left ureteral stone Activity Restrictions/Additional Instructions: Gross hematuria blood appearance in toilet bowl with urination, left-sided flank pain, no trauma. Afebrile, unremarkable vitals. Labs blood testing unremarkable. You did have some red cells on your urinalysis, with a few bacteria noted, urine culture requested, IV antibiotics given in case of urine infection, further antibiotics sent to your pharmacy to take for the next [address] showed presence of a small 2 mm diameter stone in the left ureter that is the likely cause of your symptoms. This could become quite complicated if you have infection. Sometimes ureteral stenting procedure is done by a urologist. Unfortunately there is no local urologist available on-call here today. You are stable without fever for now, no emergent transfer seems needed right now. Consider follow up with local urologist, contact information given for Dr. Cristobal and Dr. Mcnamara, if you could call their office tomorrow Tuesday during regular hours for close follow up. Take antibiotics as directed. Take Tylenol and or Motrin as needed for pain control. Strain urine for passage of stone or sediment, as testing can be done in the laboratory, to see what kind of stone is present, to see if any medications could be useful for future stone prevention or dissolution. Return earlier to this/nearest emergency department for any change worsening symptoms or any concerns prior Prescriptions: New cefdinir 300 mg capsule 300 mg PO BID 10 Days Qty: 20 0RF No Action multivitamin [Multiple Vitamins] 1 EACH tablet 1 tab PO QDAY Qty: 0 Humira 40 MG/0.8 ML syringe kit 40 mg SQ QWEEK Qty: 0 metformin 500 mg tablet 500 mg PO BID lisinopril 5 mg tablet 5 mg PO BEDTIME ibuprofen 800 MG tablet 800 mg PO TID PRN (Reason: Pain (Scale Score 1-3)) Referrals: Param Mcnamara MD [Non-Staff] - Mike Cristobal MD [Physician] - Vasiliy Louise MD [Primary Care Provider] - Stand Alone Forms: Patient Portal/API
[2024-05-13 19:36] LABS: Appearance Urine UA Turbid
[2024-05-13 19:37] LABS: Bacteria Urine Few (2-10); Culture Indicated Urine Cult Not Indicated; RBC Urine >100/HPF (0-5/HPF); Squamous Epithelial Cell Urine 0-1 /HPF (0-5/HPF); WBC Urine 0-1/HPF (0-5/HPF)
[2024-05-13 19:38] LABS: Urine Volume 5
--- NOTE | 2024-05-13 19:52 | DI.CT.S_ITS ---
PROCEDURE: CT ABDOMEN PELVIS W CON INDICATIONS: left back pain gross hematuria TECHNIQUE: After the administration of intravenous contrast, axial sections acquired from the lung bases to the pubic symphysis. Coronal and sagittal reformats were performed. For radiation dose reduction, the following was used: automated exposure control, adjustment of mA and/or kV according to patient size. COMPARISON: None. FINDINGS: Image quality: Diagnostic. Lower Chest: Left lower lobe wedge resection. Healing left posterior 10th rib fracture. Moderate LAD calcifications for age. ABDOMEN: Liver: Probable hepatic steatosis. Gallbladder: No radiopaque gallstones or wall thickening. Biliary ducts: No biliary dilation. Pancreas: No ductal dilation. Spleen: Size is within normal limits. Subcentimeter hypoattenuating lesion, too small to characterize by CT but likely benign in isolation. Adrenal Glands: Subcentimeter low left adrenal nodularity, too small to characterize per ACR consensus guidelines. Subcentimeter lesion containing macroscopic fat in the right adrenal gland, presumably a benign adrenal myelolipoma. Kidneys and Ureters: Moderate hydronephrosis and moderate left hydroureter. Obstructing 2 mm stone in the left UVJ (series 2, image 76). Symmetric enhancement of the kidneys. Stomach and Bowel: Normal colonic caliber, without significant wall thickening. Colonic diverticulosis without evidence of diverticulitis. Appendectomy. Peritoneum: No abnormal intraperitoneal fluid. No free air. Ventral Wall: No significant ventral hernia. Abdominal Nodes: No retroperitoneal or mesenteric adenopathy by size criteria. Vessels: Aorta and inferior vena cava are normal in size. PELVIS: Pelvic Organs: Unremarkable. Bladder: No bladder wall thickening, accounting for underdistention. Pelvic Nodes: No enlarged lymph nodes. Miscellaneous: No inguinal hernias are seen. Bones: No aggressive osseous abnormality. Degenerative disc disease of the lumbar spine. Severe spinal canal narrowing at L3-4 due to degenerative changes. IMPRESSION: Obstructing 2 mm stone in the left UVJ, resulting in moderate hydronephrosis and hydroureter. Severe spinal canal narrowing at L3-4 due to degenerative change. Dictated by: Kemar Burton M.D. on 05/13/2024 at 20:26 Approved by: Kemar Burton M.D. on 05/13/2024 at 20:32
[2024-05-13 19:55] LABS: Add Manual Diff / Slide Review NO; Basophils Absolute Auto 100 /uL (0-100); Basophils Percent Auto 0.4 % (0-2); Eosinophils Absolute Auto 200 /uL (0-450); Eosinophils Percent Auto 1.6 % (2-4); Hematocrit 39.9 % (36-46); Hemoglobin 13.2 g/dL (12.0-16.0); Lymphocytes Absolute Auto 3400 /uL (1100-4500); Lymphocytes Percent Auto 24.7 % (25-40); Mean Corpuscular Hemoglobin 29.3 PG (26-34); Mean Corpuscular Volume 88.9 fL (80-100); Monocytes Absolute Auto 1600 /uL (0-900); Monocytes Percent Auto 11.1 % (3-14); Neutrophils Absolute Auto 8700 /uL (1500-7000); Neutrophils Percent Auto 62.2 % (50-75); Platelet Count 307 X10^3/uL (150-400); Red Blood Cell Count 4.49 X10^6/uL (4.0-5.2); Red Cell Distribution Width 13.3 % (11.6-14.8)
[2024-05-13 19:58] LABS: Alanine Aminotransferase 26 IU/L (<35); Albumin 4.4 g/dL (3.5-5.0); Albumin Globulin Ratio 1.3 (1.0-2.8); Alkaline Phosphatase 92 U/L (38-126); Aspartate Aminotransferase 24 IU/L (14-36); Bilirubin Total 0.6 mg/dL (0.2-1.3); Blood Urea Nitrogen 20 mg/dL (7-17); Calcium 9.5 mg/dL (8.4-10.2); Carbon Dioxide 25 mmol/L (22-32); Chloride 104 mmol/L (98-107); Estimated Glomerular Filt Rate > 60 mL/min (>60); Globulin 3.3 g/dL (1.7-4.1); Glucose 117 mg/dL (80-110); HEMOLYSIS < 15 (0-50); Lipase 177 U/L (23-300); Sodium 137 mmol/L (137-145); Total Protein 7.7 g/dL (6.3-8.2)
[2024-05-13] MEDS: cefTRIAXone 1,000 MG in SODIUM CHLORIDE 0.9% 100 ML 200 MG IV (20:15)
[2024-05-13 21:05] VITALS: BP 173/81; PULSE 73; RESP 16; O2SAT 98
== END 2024-05-13 21:10 | disposition home or self-care (01) ==
PROVIDERS: Emergency Provider Emergency Medicine; PCP Family Medicine
DX: R31.0 Gross hematuria (principal); N39.0 Urinary tract infection, site not specified; N20.1 Calculus of ureter
CPT/HCPCS: 36415; 74177; 80053; 81001; 83690; 85025; 96365; 99284; J0696; Q9967

== ENCOUNTER → 2025-06-13 14:48 | Outpatient (CLI) | payer OTHER, SELFPAY ==
--- NOTE | 2025-06-13 14:49 | DI.US.S_ITS ---
PROCEDURE: US THYROID INDICATIONS: THYROID NODULE TECHNIQUE: Real-time scanning was performed of the thyroid gland, with image documentation. COMPARISON: [facility], US, US THYROID, 03/22/2023, 7:09. FINDINGS: Thyroid: Right lobe measures 6.0 x 2.6 x 3.5 cm. Left lobe measures 8.3 x 2.8 x 3.6 cm. Isthmus is 1.0 cm thick. Echotexture is heterogeneous. No discrete nodule seen on today's exam. IMPRESSION: Multinodular appearance of the thyroid gland which is diffusely heterogeneous which can be associated with thyroiditis in the appropriate clinical setting. No discrete nodule seen on today's exam. ACR TI-RADS definitions and recommendations: TI-RADS 1 (benign): 0 points. FNA not needed. TI-RADS 2 (not suspicious): 2 points. FNA not needed. TI-RADS 3: 3 points. * FNA if 2.5 cm or larger, follow up if 1.5 cm or larger (at 1, 3, and 5 years). TI-RADS 4: 4-6 points. * FNA if 1.5 cm or larger, follow up if 1 cm or larger (at 1, 2, 3, and 5 years). TI-RADS 5: 7 points or more. * FNA if 1 cm or larger, follow up if 0.5 cm or larger (every year for 5 years). Dictated by: Eleazar Sutherland [facility] Interpreted: Louis Franklin MD on 06/13/2025 at 16:05 Approved by: Louis Franklin M.D. on 06/18/2025 at 9:52
== END ==
LOC: US 14:49
PROVIDERS: PCP Family Medicine; Referring Provider Family Medicine; Visit Provider Family Medicine
DX: E04.1 Nontoxic single thyroid nodule (principal)
CPT/HCPCS: 76536

== ENCOUNTER → 2025-07-19 07:49 | Outpatient (CLI) | payer OTHER, SELFPAY ==
--- NOTE | 2025-07-19 07:50 | DI.MG.S_ITS ---
MM screening mammo BI: 07/19/2025. BI-RADS: 1 CLINICAL: 75-year old female for bilateral screening mammogram. Tyrer-Cuzick lifetime risk of 1.8%. No personal or first-degree family history of breast cancer. PRIOR EXAMS 04/13/2024, 03/28/2023, 03/24/2022, 03/16/2021. MAMMOGRAPHY TECHNIQUE: 2D and 3D (tomosynthesis) digital mammographic views obtained, with additional images as needed for full coverage. Current study was also evaluated with a Computer Aided Detection (CAD) system. DENSITY B. There are scattered areas of fibroglandular density. MAMMOGRAPHY FINDINGS Bilateral: No suspicious mass, asymmetry, microcalcification, or other abnormality seen. IMPRESSION: * No evidence of malignancy. RECOMMENDATIONS Bilateral * Annual screening mammography. OVERALL ASSESSMENT CATEGORY BI-RADS-1: Negative. The [employer] recommends annual screening mammography beginning at age 40 for women with average risk of breast cancer. ELECTRONICALLY SIGNED: Blanca Rodrigues M.D. on 07/19/2025 at 08:45:42 AM PT Interpreting Station ID: [id number]
== END ==
LOC: MAMMO 07:50
PROVIDERS: PCP Family Medicine; Referring Provider Family Medicine; Visit Provider Family Medicine
DX: Z12.31 Encounter for screening mammogram for malignant neoplasm of breast (principal)
CPT/HCPCS: 77063; 77067